=== PATIENT | female | born 1975 | race Caucasian/White ===

== ENCOUNTER 2016-12-10 19:18 | Emergency (ER) | payer BC ==
--- NOTE | ~2016-12-10 | CT2 ---
[facility] A Service of [facility] RADIOLOGY TEXT RESULTS PATIENT: LEROY BAI LOCATION: [facility] : [birth year] UNIT #: [id number] AGE: [address]: Demond Gayle MD SEX: F ORDER DR: [id number] [facility] [address] [place], [place] [address] [id number] MR#: [id number] Acc #: [id number] NAME: LEROY BAI : 1975 SEX: F STUDY DATE/TIME: 12/10/2016 22:24 UNIT: [facility] ROOM: STUDY DESCRIPTION: CT Abd and Pelv W Cont Attending Physician: Demond Gayle M.D. Ordering Physician: Demond Gayle M.D. Primary Care Physician: No Primary Care Physician MEDICAL IMAGING REPORT This report is preliminary unless electronic signature is present EXAM CT abdomen and pelvis with IV contrast HISTORY Abdomen pain for 3 days. Nausea today. TECHNIQUE This CT exam was performed with one or more of the following radiation dose reduction techniques: automatic control, adjustment of mA and/or kV according to patient size, and iterative reconstruction. FINDINGS CT abdomen and pelvis was performed with IV contrast. CT ABDOMEN: The liver, gallbladder, spleen, pancreas, kidneys, and adrenal glands are normal. Normal caliber abdominal aorta. No ascites. No adenopathy. No bowel dilatation. Normal caliber abdominal aorta. CT PELVIS: Hysterectomy. Bartholin duct cyst along the left perineum measuring 1.9 cm. No pelvic free fluid, mass or adenopathy. Urinary bladder is unremarkable. IMPRESSION 1. No acute findings in the abdomen or pelvis. 2. No urinary obstruction or bowel obstruction. No free fluid or inflammatory stranding. 3. Incidentally noted is a 1.9 cm Bartholin duct cyst along the left perineum. 4. Hysterectomy. Dictated by... Dayton Edwards M.D. [facility] A Service of [facility] RADIOLOGY TEXT RESULTS PATIENT: LEROY BAI LOCATION: [facility] : [id number] UNIT #: [id number] AGE: [address]: Demond Gayle MD SEX: F ORDER DR: THIS IS AN ELECTRONICALLY VERIFIED REPORT Daytondiane Edwards M.D. at 12/11/2016 11:32 PM HELLEN/ashli TD: 12/11/2016 02:58 JOB #: [id number] MEDICAL IMAGING REPORT Page 1 of 1 COPY
[~2016-12-10 19:18] MED LIST: FLEXERIL10 MG PO; MOBIC15 MG PO; NEURONTIN PO; SYNTHROID0.2 MG PO; VITAMIN D50000 UNIT PO
[2016-12-10 19:51] LABS: BASOPHIL% 0.2 % (0-2.5); EOSINOPHIL# 0.2 X10e3 (0-0.7); EOSINOPHIL% 1.6 % (0.0-7.0); HEMOGLOBIN 12.1 gm/dL (12.0-16.0); LYMPHOCYTE# 4.1 X10e3 (1.0-3.5); MEAN CELL VOLUME 90.4 FL (83-96); MEAN CORPUSCULAR HEMOGLOBIN 28.7 PG (28-34); MEAN CORPUSCULAR HGB CONC 31.7 g/dL (30-36); MEAN PLATELET VOLUME 7.1 FL (6.5-11.5); MONOCYTE# 0.5 X10e3 (0-1.0); MONOCYTE% 5.4 % (3.0-12.0); NEUTROPHIL# 4.8 X10e3 (1.5-7.1); NEUTROPHIL% 49.8 % (40-75); PLATELET COUNT 193 X10e3 (140-420); RED BLOOD COUNT 4.21 X10e (3.90-5.30); RED CELL DISTRIBUTION WIDTH 15.3 % (11.0-15.5); WHITE BLOOD COUNT 9.6 X10e3 (4.0-10.5)
[2016-12-10 19:52] LABS: DIFF IND NO
[2016-12-10 20:11] LABS: ALBUMIN SERUM 4.6 g/dL (3.5-5.0); BILIRUBIN, DIRECT 0.1 mg/dL (0.0-0.2); BILIRUBIN,INDIRECT 0.5 mg/dL (0.0-0.9); BILIRUBIN,TOTAL 0.6 mg/dL (0.2-2.0); CALCIUM SERUM 8.6 mg/dL (8.4-10.2); GLOM FILT RATE Estimated 70.4 mL/min (>60); POTASSIUM 3.1 mmol/L (3.5-5.1); PROTEIN TOTAL SERUM 7.9 g/dL (6.0-8.3)
[2016-12-10 21:36] LABS: URINE SOURCE CLEAN CATCH
[2016-12-10 21:41] LABS: URINE APPEARANCE CLEAR; URINE BILIRUBIN NEG (NEG); URINE BLOOD NEG (NEG); URINE COLOR YELLOW; URINE GLUCOSE NEG (NEG); URINE KETONE NEG (NEG); URINE LEUKOCYTE ESTERASE NEG (NEG); URINE NITRATE NEG (NEG); URINE PROTEIN NEG (NEG); URINE SPECIFIC GRAVITY 1.002 (1.003-1.035); URINE UROBILINOGEN 0.2 MG/DL (NEG)
[2016-12-10 21:46] LABS: CULTURE INDICATED? NO
== END 2016-12-10 23:50 | disposition home or self-care (01) ==
LOC: CED 19:18
PROVIDERS: Emergency Medicine
DX: R10.9 Unspecified abdominal pain (principal); F17.210 Nicotine dependence, cigarettes, uncomplicated; Z85.850 Personal history of malignant neoplasm of thyroid; Z90.710 Acquired absence of both cervix and uterus; Z98.51 Tubal ligation status; Z79.899 Other long term (current) drug therapy; Z88.0 Allergy status to penicillin; Z88.5 Allergy status to narcotic agent
CPT/HCPCS: 36415; 74177; 80048; 80076; 81003; 82150; 83690; 85025; 96361; 96372; 96374; 99284; J0500; J2405; Q9967